=== PATIENT | female | born 1965 | race Caucasian/White ===

== ENCOUNTER 2016-12-09 19:12 | Emergency (ER) | payer BC ==
[~2016-12-09] VITALS: Ht 157.5 cm; Wt 86.2 kg
[~2016-12-09 19:12] MED LIST: DIPH50CA33 PO; ESTR1TAB24 PO; FLC150T PO; LTRS15C TOP; PRD5T PO; SULF1TAB38 PO; ZEGRID PO
[2016-12-09] MEDS ORDERED: DEXAMETHASONE PF 10 MG/ML (DECADRON) VIAL IM ONE (19:30)
[2016-12-09] MEDS ORDERED: D-ME118S33 PO (19:32)
[2016-12-09] MEDS ORDERED: AZIT250T5 PO (19:32)
--- NOTE | 2016-12-09 19:32 | ED Cough/URI ---
General Chief Complaint: Cough/Cold/Flu Symptoms Stated Complaint: COLD Nursing Triage Note: PT TO ED 5 W/ C/O CASTELLANOS, COUGH, CONGESTION, FEVER ONSET X4 DAYS, WORSE TODAY. NO OTHER C/O VOICED Source: patient Exam Limitations: no limitations History of Present Illness Time seen by provider: 19:29 Initial Comments To ER with reports of a nonproductive cough, pain when coughing, throat irritation, nasal congestion/rhinorrhea and head pressure since 12/05. Low- grade fevers. Timing/Duration: constant Severity/Quality: dry cough Associated Symptoms: cough, earache, fever/chills, headache, muscle aches, nasal congestion, nasal drainage, sore throat Allergies and Home Medications Allergies Coded Allergies: Sulfa (Sulfonamide Antibiotics) (Unverified Allergy, Severe, RASH, 12/06/14 ) Home Medications Estradiol 1 Mg Tablet, 1 MG PO DAILY, (Reported) [Zegrid] , 1 TAB PO DAILY, (Reported) Constitutional: see HPI, chills, malaise EENTM: nose congestion, see HPI Respiratory: see HPI, cough Genitourinary: no symptoms reported Musculoskeletal: no symptoms reported Skin: no symptoms reported Past Ghtqplv-Mcimqr-Mzavwj Hx Patient Social History Alcohol Use: Denies Use Recreational Drug Use: No Smoking Status: Never a Smoker 2nd Hand Smoke Exposure: No Recent Foreign Travel: No Contact w/Someone Who Travel: No Recent Infectious Disease Expo: No Recent Hopitalizations: No Immunizations Up To Date Date of Influenza Vaccine: May 23, 2012 Seasonal Allergies Seasonal Allergies: No Surgeries HX Surgeries: Yes (KNEE AND NECK SURG) Surgeries: Section, Hysterectomy, Orthopedic Respiratory Hx Respiratory Disorders: No Cardiovascular Hx Cardiac Disorders: No Cardiac Disorders: High Cholesterol, Hypertension Neurological Hx Neurological Disorders: Yes Reproductive System Hx Reproductive Disorders: No Sexually Transmitted Disease: No 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 Genitourinary Hx Genitourinary Disorders: No Gastrointestinal Hx Gastrointestinal Disorders: No Musculoskeletal Hx Musculoskeletal Disorders: Yes (KNEE SURG-TORN MENISCUS) Endocrine Hx Endocrine Disorders: No HEENT HX ENT Disorders: No Cancer Hx Cancer: No Psychosocial Hx Psychiatric Problems: No Blood Transfusions Hx Blood Disorders: No Physical Exam Vital Signs Vital Sign - Last 12Hours Capillary Refill : Less Than 3 Seconds General Appearance: WD/WN, no apparent distress Eyes: Bilateral Eye EOMI, Bilateral Eye Normal Inspection, Bilateral Eye PERRL HEENT: PERRL/EOMI, normal ENT inspection, TMs normal Neck: non-tender, full range of motion Respiratory: no respiratory distress, no accessory muscle use Cardiovascular: regular rate, rhythm, no murmur Gastrointestinal: normal bowel sounds, non tender, soft Extremities: normal range of motion, non-tender Neurologic/Psychiatric: alert, normal mood/affect, oriented x 3 Skin: normal color, warm/dry Progress/Results/Core Measures Results/Orders My Orders Orders - HIEN OCASIO APRN Chest Pa/Lat (2 View) (12/09/16 19:26) Dexamethasone Pf Injection (Decadron Pf (12/09/16 19:30) Vital Signs/I&O Vital Sign - Last 12Hours 12/09/16 12/09/16 19:17 19:17 Temp 98.8 Pulse 79 Resp 18 B/P (MAP) 162/95 Pulse Ox 97 O2 Delivery Room Air Room Air Blood Pressure Mean: 117 Departure Impression Impression: Primary Impression: Bronchitis Disposition: 01 HOME, SELF-CARE Condition: Stable Departure-Patient Inst. Decision time for Depature: 19:30 Referrals: IONA VALENTIN DO (PCP/Family) Primary Care Physician Patient Instructions: Acute Bronchitis, Adult (DC) Add. Discharge Instructions: Tylenol and Motrin for fevers or pain 2. Cough medication as directed 2. Antibiotics as directed All discharge instructions reviewed with patient and/or family. Voiced understanding. Scripts Azithromycin (Azithromycin) 250 Mg Tablet 250 MG PO DAILY, #4 TAB Prov: HIEN OCASIO APRN 12/09/16 D-Methorphan Hb/P-Epd HCl/Bpm (Bromfed Dm Cough Syrup) 118 Ml Syrup 5 ML PO Q4H Y for COUGH, #120 ML Prov: HIEN OCASIO APRN 12/09/16 HIEN OCASIO APRN December 09, 2016 19:32
--- NOTE | 2016-12-09 19:46 | Diagnostic Imaging Report ---
Indication: Cough and general weakness for 4 days. Discussion: Two views of the chest were obtained, no comparison. Antecedent granulomatous disease, benign. No focal consolidation, pleural fluid, or pneumothorax. Normal heart size. No osseous abnormality. Impression: 1. Negative chest. Dictated by: Dictated on workstation # [id number]
[2016-12-09 20:09] VITALS: BP 157/95
[2016-12-09] MEDS ORDERED: AZITHROMYCIN 250 MG TAB (ZITHROMAX) PO SCH (20:15)
== END 2016-12-09 20:09 | disposition home or self-care (01) ==
LOC: EDUNIT# 19:12 → ER 19:13
DX: J40 Bronchitis, not specified as acute or chronic (principal); R50.9 Fever, unspecified; I10 Essential (primary) hypertension
CPT/HCPCS: 71020; 96372; 99282

== ENCOUNTER 2018-07-21 11:26 | Emergency (ER) | payer BC ==
[~2018-07-21] VITALS: Ht 157.5 cm; Wt 84.4 kg
[~2018-07-21 11:26] MED LIST changes: +AZIT250T12 PO; +D-ME118S33 PO
--- NOTE | 2018-07-21 12:42 | ED Respiratory ---
General Chief Complaint: Respiratory Problems Stated Complaint: SINUS INFECTION/BRONCHITIS/HARDER TO BREATHE Nursing Triage Note: Patient seen in clinic last and diagnosed with bronchitis and a sinus infection. She feels like her breathing has gotten worse and she is concerned about pneumonia. she was given a Zpak and a steroid shot in the clinic. Source: patient Exam Limitations: no limitations History of Present Illness Date Seen by Provider: Jul 21, 2018 Time Seen by Provider: 12:41 Initial Comments To ER with reports of a four-day history of nonproductive cough, chest tightness , hoarseness. No fevers. She was seen by urgent care on of last week ( today is Sunday) and given a prescription for Z-Conrado and steroid shot. Timing/Duration: just prior to arrival Severity: moderate Associated Symptoms: cough, shortness of breath, wheezing Allergies and Home Medications Allergies Coded Allergies: Sulfa (Sulfonamide Antibiotics) (Unverified Allergy, Severe, RASH, 12/06/14 ) Home Medications Albuterol Sulfate 1 Puff Puff, 2 PUFF IH Q4H PRN for WHEEZING 1 PUFF = 90 MCG Prescribed by: HIEN OCASIO on 07/21/18 1344 Azithromycin 250 Mg Tablet, 250 MG PO DAILY Prescribed by: HIEN OCASIO on 12/09/16 193 D-Methorphan Hb/P-Epd HCl/Bpm 118 Ml Syrup, 5 ML PO Q4H PRN for COUGH Prescribed by: HIEN OCASIO on 12/09/161931 Estradiol 1 Mg Tablet, 1 MG PO DAILY, (Reported) [Zegrid] , 1 TAB PO DAILY, (Reported) Patient Home Medication List Home Medication List Reviewed: Yes Review of Systems Review of Systems Constitutional: see HPI EENTM: see HPI Respiratory: see HPI, cough, short of breath, wheezing Genitourinary: no symptoms reported Musculoskeletal: no symptoms reported Skin: no symptoms reported Psychiatric/Neurological: No Symptoms Reported Hematologic/Lymphatic: No Symptoms Reported Immunological/Allergic: no symptoms reported Past Iuehlbh-Xzulol-Rcmjvc Hx Patient Social History 2nd Hand Smoke Exposure: No Recent Foreign Travel: No Contact w/Someone Who Travel: No Recent Infectious Disease Expo: No Recent Hopitalizations: No Immunizations Up To Date Date of Influenza Vaccine: May 23, 2012 Seasonal Allergies Seasonal Allergies: No Past Medical History Surgeries: Yes (KNEE AND NECK SURG) Section, Hysterectomy, Orthopedic Respiratory: No Cardiac: Yes High Cholesterol, Hypertension Neurological: Yes Reproductive Disorders: No 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 0oz. [id number]; BMI Method:Stated General Appearance: WD/WN, no apparent distress Eyes: Bilateral Eye Normal Inspection, Bilateral Eye PERRL, Bilateral Eye EOMI HEENT: PERRL/EOMI, normal ENT inspection Neck: non-tender, full range of motion Respiratory: no respiratory distress, no accessory muscle use, wheezing Cardiovascular: regular rate, rhythm, no murmur Gastrointestinal: normal bowel sounds, non tender, soft Neurologic/Psychiatric: alert, normal mood/affect, oriented x 3 Skin: normal color, warm/dry Progress/Results/Core Measures Suspected Sepsis Recent Fever Within 48 Hours: No Infection Criteria Present: Documented Infection New/Unexplained Altered Menta: No Sepsis Screen: No Definite Risk SIRS Temperature:97.2 Pulse: 84 Respiratory Rate: 20 Blood Pressure 126 /84 Mean: 98 Results/Orders My Orders Orders - HIEN OCASIO APRN Chest Pa/Lat (2 View) (07/21/18 12:35) Albuterol/Ipra Inhalation Soln (Duoneb I (07/21/18 12:45) Svn Small Volume Nebulizer (07/21/18 12:35) Medications Given in ED Current Medications Medications Dose Ordered Sig/Lakesha Route Start Time Stop Time Status Last Admin Dose Admin Albuterol/ Ipratropium 3 ml ONCE ONCE INH 07/21/18 12:45 07/21/18 12:46 DC 07/21/18 13:36 3 ML Vital Signs/I&O 07/21/18 07/21/18 12:07 13:36 Temp 97.2 Pulse 84 Resp 20 B/P (MAP) 126/84 (98) Pulse Ox 97 95 O2 Delivery Room Air Capillary Refill : Less Than 3 Seconds Blood Pressure Mean: 98 Departure Impression Primary Impression: Bronchitis Additional Impression: Reactive airway disease Qualified Codes: J45.909 - Unspecified asthma, uncomplicated Disposition: 01 HOME, SELF-CARE Condition: Stable Departure-Patient Inst. Decision time for Depature: 13:43 Referrals: IONA VALENTIN DO (PCP/Family) Primary Care Physician Patient Instructions: Acute Bronchitis, Adult (DC) Add. Discharge Instructions: 1. Medication as directed 2. Inhaler 2 puffs every 4 hours for shortness of breath. Continue with the antibiotics. All discharge instructions reviewed with patient and/or family. Voiced understanding. Scripts Benzonatate (TESSALON PERLES) 100 Mg Capsule 200 MG PO TID PRN for COUGH, #30 CAP Prov: HIEN OCASIO APRN 07/21/18 Albuterol Sulfate (PROAIR HFA) 1 Puff Puff 2 PUFF IH Q4H PRN for WHEEZING, #1 PUFF 1 PUFF = 90 MCG. Prov: HIEN OCASIO APRN 07/21/18 Work/School Note: Work Release Form Date Seen in the Emergency Department: Jul 21, 2018 Return to Work: Jul 23, 2018 HIEN OCASIO APRN Jul 21, 2018 12:42
[2018-07-21] MEDS ORDERED: RT-ALBUTEROL/IPRATROPIUM 3 ML (DUONEB) VIAL INH ONE (12:45)
--- NOTE | 2018-07-21 13:40 | Diagnostic Imaging Report ---
INDICATION: Bronchitis. Sinus infection. EXAMINATION: PA and lateral views of the chest. FINDINGS: The heart size and vascularity are normal. Lungs are clear. There is no effusion. There is no acute bony abnormality. IMPRESSION: No acute abnormality is seen. There is no change from 12/09/2016. Dictated by: Dictated on workstation # [id number]
[2018-07-21] MEDS ORDERED: RT-ALBUINH IH ×2 (13:44→13:54)
[2018-07-21] MEDS ORDERED: BENZ100C18 PO (13:54)
[2018-07-21 13:55] VITALS: BP 126/84
== END 2018-07-21 14:00 | disposition home or self-care (01) ==
LOC: EDUNIT# 11:26 → ER 11:27
DX: J45.909 Unspecified asthma, uncomplicated (principal); E78.00 Pure hypercholesterolemia, unspecified; I10 Essential (primary) hypertension; Z88.2 Allergy status to sulfonamides; Z79.51 Long term (current) use of inhaled steroids; Z98.890 Other specified postprocedural states; Z90.710 Acquired absence of both cervix and uterus
CPT/HCPCS: 71046; 94640

== ENCOUNTER → 2020-08-18 | Outpatient (CLI) | payer BC ==
[~2020-08-18] MED LIST changes: +BENZ100C18 PO; +RT-ALBUINH IH
--- NOTE | 2020-08-18 13:45 | Diagnostic Imaging Report ---
INDICATION: Low back pain. Time of exam 1:26 PM 3 views lumbar spine were obtained. Vertebral alignment is normal. Vertebral body heights are well-maintained. No acute compression fractures seen. There is some degenerative disc disease lower thoracic spine. Lumbar discs show normal space. IMPRESSION: No acute bony abnormality is detected. Dictated by: Dictated on workstation # [id number]
== END ==
LOC: RAD 12:55
DX: M99.01 Segmental and somatic dysfunction of cervical region (principal); M99.02 Segmental and somatic dysfunction of thoracic region; M99.03 Segmental and somatic dysfunction of lumbar region; M99.04 Segmental and somatic dysfunction of sacral region; M54.17 Radiculopathy, lumbosacral region
CPT/HCPCS: 72100